=== PATIENT | male | born 1985 | race Two or more races ===

== ENCOUNTER 2019-01-16 09:17 | Emergency (ER) ==
[~2019-01-16] VITALS: Ht 182.9 cm; Wt 104.3 kg
[2019-01-16 09:22] VITALS: BP 149/94
--- NOTE | 2019-01-16 10:01 | NUR ---
For discharge - [facility] given verbalized understanding Home ambulatory Stable
== END 2019-01-16 10:02 | disposition home or self-care (01) ==
LOC: ER 09:20
DX: F41.0 Panic disorder [episodic paroxysmal anxiety] (principal); F17.210 Nicotine dependence, cigarettes, uncomplicated; F10.10 Alcohol abuse, uncomplicated; Y90.9 Presence of alcohol in blood, level not specified; Z60.2 Problems related to living alone
CPT/HCPCS: 82962-TC